=== PATIENT | male | born 1935 | race Caucasian/White ===

== ENCOUNTER 2017-09-26 04:48 | Inpatient (IN) | payer MEDICARE, MEDICAID ==
[~2017-09-26] VITALS: Ht 177.8 cm; Wt 65.8 kg
[~2017-09-26 04:48] MED LIST: CARAFATE1 G PO; CIPRO500 MG PO; DICLOFENAC SODI50 MG PO; FLAGYL500 MG PO; HYDROCODON-ACE1 EAC7 PO; HYDROXYZINE HCL50 MG PO; OMEPRAZOLE20 M1 PO; SODIUM BICARBO650 MG PO; TENORMIN25 MG PO; ZETIA10 MG PO; ZOCOR20 MG PO
[2017-09-26 06:14] LABS: BASOPHILS 0.1 % (0-2); EOSINOPHILS 0.3 % (0-7); HEMOGLOBIN 13.9 g/dL (13.5-17.5); IMMATURE GRANULOCYTES 0.3 % (0-5); LYMPHOCYTES 9.7 % (15-50); MCH 29.6 pg (26.0-34.0); MCHC 33.1 g/dL (31.0-37.0); MCV 89.4 fL (80.0-100.0); MEAN PLATELET VOLUME 10.3 fL (7.4-10.4); MONOCYTES 9.1 % (2-11); NEUTROPHILS 80.5 % (40-80); PLATELET COUNT 217 10x3/uL (130-400); RDW 13.7 % (11.5-14.5); WBC 10.4 10x3/uL (4.8-10.8)
[2017-09-26 06:15] LABS: ALBUMIN 3.3 g/dL (3.4-5.0); ANION GAP 15.8 mmol/L (8-16); BILIRUBIN - TOTAL 0.7 mg/dL (0.2-1.3); CALCIUM 8.4 mg/dL (8.5-10.1); CARBON DIOXIDE 22.8 mmol/L (21.0-32.0); CREATININE - SERUM 1.5 mg/dL (0.6-1.3); POTASSIUM - SERUM 3.6 mmol/L (3.5-5.1); PROTEIN - SERUM 6.9 g/dL (6.4-8.2)
[2017-09-26 06:24] LABS: THYROID STIMULATING HORMONE 1.99 uIU/mL (0.36-3.74); TROPONIN-I 0.023 ng/mL (0.000-0.060)
[2017-09-26] MEDS ORDERED: HYDROCODON-ACE1 EAC6 PO (14:45)
[2017-09-26] MEDS ORDERED: HYDROCODON-ACE1 EAC7 PO (14:49)
[2017-09-26 14:53] VITALS: BP 117/91; BMI 20.8
[2017-09-26 19:00] VITALS: BP 131/47; BP 154/84
[2017-09-26 19:24] LABS: APPEARANCE CLEAR (CLEAR); COLOR YELLOW (YELLOW)
[2017-09-26 19:25] LABS: BILIRUBIN NEGATIVE (NEGATIVE); GLUCOSE NEGATIVE (NEGATIVE); KETONE NEGATIVE (NEGATIVE); NITRITE NEGATIVE (NEGATIVE); PROTEIN NEGATIVE (NEGATIVE); UROBILINOGEN NORMAL (NORMAL)
[2017-09-27 02:33] VITALS: BP 139/76
[2017-09-27 06:02] VITALS: BP 149/78
[2017-09-27 06:05] LABS: BASOPHILS 0.2 % (0-2); EOSINOPHILS 0.8 % (0-7); HEMATOCRIT 37.8 % (42.0-54.0); HEMOGLOBIN 12.4 g/dL (13.5-17.5); LYMPHOCYTES 29.1 % (15-50); MCH 29.2 pg (26.0-34.0); MCHC 32.8 g/dL (31.0-37.0); MCV 88.9 fL (80.0-100.0); MEAN PLATELET VOLUME 10.3 fL (7.4-10.4); MONOCYTES 12.9 % (2-11); PLATELET COUNT 232 10x3/uL (130-400); RBC 4.25 10x6/uL (4.20-6.10)
[2017-09-27 06:17] LABS: CARBON DIOXIDE 24.3 mmol/L (21.0-32.0); CREATININE - SERUM 1.3 mg/dL (0.6-1.3); POTASSIUM - SERUM 3.3 mmol/L (3.5-5.1)
[2017-09-27 08:14] VITALS: BP 145/77
[2017-09-27 10:47] VITALS: Ht 177.8 cm; Wt 65.8 kg
[2017-09-27 11:29] VITALS: BP 131/69
[2017-09-27 15:16] VITALS: BP 128/66
[2017-09-27] MEDS ORDERED: MEDROL DOSE PACK4 MG PO (16:04)
[2017-09-27] MEDS ORDERED: ZPAK PO (16:05)
[2017-09-27] MEDS ORDERED: SYMBICORT 16010.2 GM INH (16:05)
[2017-09-27] MEDS ORDERED: VENTOLIN HFA18 GM INH (16:06)
== END 2017-09-27 18:30 | disposition home or self-care (01) | DRG 192 ==
LOC: D.ER 04:48 → D.EDHOLD 06:27 → D.M2 16:56
PROVIDERS: Emergency Medicine; Family Medicine
DX: J44.1 Chronic obstructive pulmonary disease with (acute) exacerbation (principal); I10 Essential (primary) hypertension

== ENCOUNTER 2017-11-09 16:29 | Inpatient (IN) | payer MEDICARE, MEDICAID ==
[~2017-11-09] VITALS: Ht 177.8 cm; Wt 80.3 kg
--- NOTE | ~2017-11-09 | HP ---
PATIENT: DMITRIY MITCHELL MEDICAL RECORD: [id number] ACCOUNT: [id number] LOCATION:[facility] D.2310 : 33 ADMISSION DATE: 11/10/17 HISTORY AND PHYSICAL EXAMINATION DATE OF ADMISSION: 11/09/2017. CHIEF COMPLAINT: Nausea and vomiting. HISTORY OF PRESENT ILLNESS: The patient is an 81-year-old gentleman, who lives in outlying area who is cared for by Dr. Lorenzo. Dr. Lorenzo is not a staff physician. Therefore, the patient is admitted to my service on an unassigned medicine. The patient is an 81-year-old gentleman who 3 days ago developed nausea and vomiting. He has had a long history of having a right inguinal hernia. He presents to the Emergency Room where he was experiencing nausea and vomiting. He had also had elevated white blood cell count. He had elevated BUN and creatinine. It was felt the patient warranted admission. PAST MEDICAL HISTORY: Significant that he has had cardiac stents placed times 2 in [place], escalation engineer name unknown. He has not had any chest pain since that time. He has had a history of COPD in the past. He has had a cholecystectomy, appendectomy. He has had a partial gastrectomy, hyperlipidemia, hypertension. FAMILY HISTORY: Mother in her 80s of oral cancer. Father in his 80s of reasons unknown. HABITS: The patient states he was smoker as a young man and has not smoked in many years. He denies any ethanol abuse. SOCIAL HISTORY: Born and raised in [place]. He has worked numerous jobs in the past. He currently is . ALLERGIES: No known drug allergies. MEDICATIONS: Include Carafate 1 g q.a.c. and q.h.s., Zetia 10 mg p.o. q.h.s., diclofenac 50 mg b.i.d., Cipro 500 mg b.i.d., sodium bicarbonate 650 mg oral tablet t.i.d., Prilosec 20 mg daily, atenolol 25 mg daily, Flagyl 500 mg b.i.d., simvastatin 20 mg once a day. REVIEW OF SYSTEMS: CONSTITUTIONAL: He denies any headaches, seizure, or syncope. Denies change in visual or auditory acuity. PULMONARY: He denies any worsening cough or congestion. CARDIOVASCULAR: He has had no chest pain, palpitation, PND, orthopnea. GASTROINTESTINAL: The patient has reported 3 days of persistent chronic nausea, vomiting. He has had no diarrhea. Last bowel movement was 3 days ago. MUSCULOSKELETAL: Noncontributory. PHYSICAL EXAMINATION VITAL SIGNS: Today, his weight is 142. His blood pressure is 111/72, pulse 128, respirations 18. HEENT: Head is normocephalic. No lesions. Ears: TMs clear. Eyes: Pupils equal, round, reactive to light. Extraocular movements are intact. Nasal cavity clear. Oropharynx clear. HISTORY AND PHYSICAL [id number] DMITRIY MITCHELL NECK: Supple. There is no adenopathy. HEART: Tachycardic. LUNGS: He has decreased breath sounds in all [place]. ABDOMEN: Soft, bowel sounds are hypoactive. He does have an easily reducible right inguinal hernia. RECTAL: Deferred. LABORATORY DATA: The patient's white count is elevated at 17.4, hemoglobin 16.1, hematocrit is 48.1, and his platelets are 255. Sodium 141, potassium 3.8, chloride is 95, BUN is 26, creatinine is 2.9, glucose 151. INR is 2.23. Urinalysis shows 1+ protein, 0-5 wbc's. IMAGING: Initially chest x-ray shows emphysematous changes, no acute cardiomegaly, cardiopulmonary disease acute changes seen. KUB shows diffuse small bowel dilatation may represent small obstructive or ileus. CT scan shows evidence of small-bowel obstruction with transition to collapsed distal small bowel in the right lower quadrant, right inguinal hernia was noted colonic diverticulosis, trace pericardial effusion, multiple renal cysts. ASSESSMENT: 1. Nausea and vomiting secondary to acute ileus, history of appendectomy, cholecystectomy, and partial gastrectomy. 2. History of arteriosclerotic heart disease with 2 stents, dating back 10 years ago, hyperlipidemia, hypertension, history of COPD, tachycardia. PLAN: The patient is admitted. IV hydration, NG tube placement. Surgical consultation will be obtained. Continue to follow. TRANSINT:[id number] Voice Confirmation ID: [id number] DOCUMENT ID: [id number] BRANDON JOE MD at 1012 CC: [id number] DICTATION DATE: 11/10/17 0747 ZOOLOGY TECHNICAL OFFICER: 11/10/17 1141 ADM IN [place] [id number]
--- NOTE | ~2017-11-09 | EC ---
PATIENT:DMITRIY MITCHELL DATE OF SERVICE: 11/10/17 SEX: M MEDICAL RECORD: [id number] DATE OF : 31 LOCATION:[facility] AGE OF PATIENT: 82 ADMISSION DATE: 11/10/17 REFERRING PHYSICIAN: INTERPRETING PHYSICIAN: MOISÉS GEE MD ECHOCARDIOGRAM REPORT ECHO CHARGES 5 ECHO LIMITED Date: 11/22 CLINICAL DIAGNOSIS: TACHYCARDIA ECHOCARDIOGRAPHIC MEASUREMENTS (adult normal given) AC root (d.<3.7cm) 3.7 cm LV Septum d (<1.2 cm> 1.1 cm Valve Excursion 1.4 cm LV Septum (systole) 1.3 cm Left Atria (s.<4.0cm> 3.4 cm LVPW d(<1.2cm) 1.2 cm RV (d.<2.3cm) 3.2 cm LVPW (sytole) 1.3 cm LV diastole(<5.6CM) 4.3 cm MV E-F(>70mm/sec) cm LV systole 3.1 cm LVOT Diameter 2.0 cm MV exc.(>10mm) cm Est.ejection fraction (50-75%) % DOPPLER: LVIT cm/sec A 88.0 cm/sec E 57.0 cm/sec LA cm/sec RVSP 25.0 mmHg LVOT 120 cm/sec AOP1/2T m/s Asc. Ao 145 cm/sec RVOT 100 cm/sec RA cm/sec PA 97.0 cm/sec AV Gradient Peak 8.4 mmHg AV Mean 3.4 mmHg AV Area 2.8 cm MV Gradient Peak 7.5 mmHg MV Mean 2.0 mmHg MV Area cm COMMENTS: Shotblaster: 2 KIM SALAZAR Batting Machine Operator Insulation: 4 Dr. Gee TAPE# PACS Pericardial Effusion Y DATE OF SERVICE: PROCEDURE: Transthoracic echocardiogram. FINDINGS: Left ventricle shows left ventricular hypertrophy. The patient has hyperdynamic LV systolic function at 65%. The patient had a mild pericardial effusion without any evidence of tamponade. RVSP is normal, RV chamber sizes are normal. There is no significant change from prior echo. TRANSINT:[id number] Voice Confirmation ID: [id number] DOCUMENT ID: [id number] ECHOCARDIOGRAM REPORT [id number] PAULAMOISÉS SILVER MD at 1500 CC: [id number] DICTATION DATE: 11/23/17 1303 STONECUTTER APPRENTICE HAND: 11/23/17 1713 ADM IN [facility] [address] [place] [id number]
--- NOTE | ~2017-11-09 | EC ---
PATIENT:DMITRIY MITCHELL DATE OF SERVICE: 11/10/17 SEX: M MEDICAL RECORD: [id number] DATE OF : 33 LOCATION:[facility] AGE OF PATIENT: 82 ADMISSION DATE: 11/10/17 REFERRING PHYSICIAN: INTERPRETING PHYSICIAN: ALIX CHRIS MD ECHOCARDIOGRAM REPORT ECHO CHARGES 4 ECHO COMPLETE Date: 11/11 CLINICAL DIAGNOSIS: TACHYCARDIA ECHOCARDIOGRAPHIC MEASUREMENTS (adult normal given) AC root (d.<3.7cm) 3.5 cm LV Septum d (<1.2 cm> 1.1 cm Valve Excursion 1.9 cm LV Septum (systole) 1.5 cm Left Atria (s.<4.0cm> 3.4 cm LVPW d(<1.2cm) 1.1 cm RV (d.<2.3cm) 2.0 cm LVPW (sytole) 1.8 cm LV diastole(<5.6CM) 5.8 cm MV E-F(>70mm/sec) cm LV systole 4.1 cm LVOT Diameter 2.0 cm MV exc.(>10mm) cm Est.ejection fraction (50-75%) % DOPPLER: LVIT cm/sec A 88.0 cm/sec E 57.0 cm/sec LA cm/sec RVSP 25.0 mmHg LVOT 120 cm/sec AOP1/2T m/s Asc. Ao 145 cm/sec RVOT 100 cm/sec RA cm/sec PA 97.0 cm/sec AV Gradient Peak 8.4 mmHg AV Mean 3.4 mmHg AV Area 2.8 cm MV Gradient Peak 7.5 mmHg MV Mean 2.0 mmHg MV Area cm COMMENTS: Parking Control Officer: Edilberto KOTHARIOE Academic Support Director: 1 Dr. Chris TAPE# PACS Pericardial Effusion N DATE OF SERVICE: 11/11/2017 Echocardiogram FINDINGS: 1. Left ventricular chamber size is within normal limits. Left ventricular systolic function is normal. Overall ejection fraction estimated at 55%. 2. Left atrium, right atrium, and right ventricular chamber sizes are within normal limits. 3. Valvular structures have normal structure and motion. ECHOCARDIOGRAM REPORT [id number] DMITRIY MITCHELL 4. Doppler interrogation reveals no significant valvular insufficiency or stenosis and pulmonary systolic pressure is normal estimated at 25 mmHg. 5. No evidence of pericardial effusion or left ventricular thrombus. TRANSINT:[id number] Voice Confirmation ID: [id number] DOCUMENT ID: [id number] ALIX CHRIS MD at 1630 CC: [id number] DICTATION DATE: 11/12/17 1150 TITLE CURATIVE SPECIALIST: 11/12/17 1225 ADM IN [place] [id number] [place] [id number]
[~2017-11-09 16:29] MED LIST changes: +HYDROCODON-ACE1 EAC6 PO; +MEDROL DOSE PACK4 MG PO; +SYMBICORT 16010.2 GM INH; +VENTOLIN HFA18 GM INH; +ZPAK PO
[2017-11-09 17:12] LABS: APPEARANCE CLEAR (CLEAR); COLOR YELLOW (YELLOW)
[2017-11-09 17:13] LABS: BILIRUBIN NEGATIVE (NEGATIVE); GLUCOSE NEGATIVE (NEGATIVE); KETONE SMALL mg/dL (NEGATIVE); NITRITE NEGATIVE (NEGATIVE); PROTEIN 1+ mg/dL (NEGATIVE); UROBILINOGEN NORMAL (NORMAL)
[2017-11-09 17:14] LABS: WHITE CELLS - URINE 0-5 /hpf (0-5)
[2017-11-09 17:15] LABS: BACTERIA FEW /hpf (NONE SEEN); EPITHELIAL CELLS 0-5 /hpf (0-5)
[2017-11-09 17:29] LABS: BASOPHILS 0.1 % (0-2); EOSINOPHILS 0 % (0-7); HEMATOCRIT 48.1 % (42.0-54.0); HEMOGLOBIN 16.1 g/dL (13.5-17.5); IMMATURE GRANULOCYTES 0.4 % (0-5); LYMPHOCYTES 9.7 % (15-50); MCH 30.6 pg (26.0-34.0); MCHC 33.5 g/dL (31.0-37.0); MCV 91.4 fL (80.0-100.0); MEAN PLATELET VOLUME 10.7 fL (7.4-10.4); MONOCYTES 9.7 % (2-11); NEUTROPHILS 80.1 % (40-80); PLATELET COUNT 255 10x3/uL (130-400); RBC 5.26 10x6/uL (4.20-6.10); RDW 14.3 % (11.5-14.5); WBC 17.4 10x3/uL (4.8-10.8)
[2017-11-09 17:35] LABS: INR 2.23 (0.85-1.17); PROTIME 24.1 SECONDS (11.6-15.0)
[2017-11-09 17:42] LABS: ALBUMIN 3.6 g/dL (3.4-5.0); ANION GAP 15.8 mmol/L (8-16); BILIRUBIN - TOTAL 0.94 mg/dL (0.2-1.3); CALCIUM 10.8 mg/dL (8.5-10.1); CREATININE - SERUM 2.9 mg/dL (0.6-1.3); POTASSIUM - SERUM 3.8 mmol/L (3.5-5.1); PROTEIN - SERUM 7.6 g/dL (6.4-8.2)
[2017-11-09 17:46] LABS: MAGNESIUM - SERUM 1.9 mg/dL (1.8-2.4)
[2017-11-09 18:07] LABS: TROPONIN-I 0.022 ng/mL (0.000-0.060)
[2017-11-10] VITALS (44 sets, daily range): BP systolic 118–184; BP diastolic 55–117; BMI 20.4; BMI 20.3
[2017-11-10 05:43] LABS: BASOPHILS 0 % (0-2); EOSINOPHILS 0 % (0-7); HEMATOCRIT 45.9 % (42.0-54.0); HEMOGLOBIN 15.2 g/dL (13.5-17.5); IMMATURE GRANULOCYTES 0.3 % (0-5); LYMPHOCYTES 8.9 % (15-50); MCH 30.2 pg (26.0-34.0); MCHC 33.1 g/dL (31.0-37.0); MCV 91.1 fL (80.0-100.0); MEAN PLATELET VOLUME 11.2 fL (7.4-10.4); MONOCYTES 11.7 % (2-11); NEUTROPHILS 79.1 % (40-80); PLATELET COUNT 247 10x3/uL (130-400); RBC 5.04 10x6/uL (4.20-6.10); RDW 14.6 % (11.5-14.5); WBC 12.6 10x3/uL (4.8-10.8)
[2017-11-10 06:19] LABS: ANION GAP 13.9 mmol/L (8-16); CALCIUM 9.5 mg/dL (8.5-10.1); CARBON DIOXIDE 33.9 mmol/L (21.0-32.0); CREATININE - SERUM 2.8 mg/dL (0.6-1.3); POTASSIUM - SERUM 3.8 mmol/L (3.5-5.1)
[2017-11-10 09:51] LABS: APPEARANCE CLEAR (CLEAR); BILIRUBIN NEGATIVE (NEGATIVE); COLOR YELLOW (YELLOW); GLUCOSE NEGATIVE (NEGATIVE); KETONE SMALL mg/dL (NEGATIVE); NITRITE NEGATIVE (NEGATIVE); PROTEIN 1+ mg/dL (NEGATIVE); SPECIFIC GRAVITY 1.005 (1.005-1.020); UROBILINOGEN NORMAL (NORMAL)
[2017-11-10 09:52] LABS: WHITE CELLS - URINE 0-5 /hpf (0-5)
[2017-11-10 09:53] LABS: BACTERIA FEW /hpf (NONE SEEN); EPITHELIAL CELLS 0-5 /hpf (0-5)
[2017-11-11] VITALS (24 sets, daily range): BP systolic 136–181; BP diastolic 69–103
[2017-11-11 04:47] LABS: INR 1.12 (0.85-1.17); PROTIME 13.9 SECONDS (11.6-15.0)
[2017-11-11 04:51] LABS: ALBUMIN 2.7 g/dL (3.4-5.0); ANION GAP 9.2 mmol/L (8-16); BILIRUBIN - TOTAL 0.7 mg/dL (0.2-1.3); CALCIUM 8.8 mg/dL (8.5-10.1); CARBON DIOXIDE 32.4 mmol/L (21.0-32.0); DIGOXIN 0.22 ng/mL (0.90-2.00); POTASSIUM - SERUM 3.6 mmol/L (3.5-5.1); PROTEIN - SERUM 6.1 g/dL (6.4-8.2)
[2017-11-12] VITALS (21 sets, daily range): BP systolic 137–179; BP diastolic 78–95
[2017-11-12 05:10] LABS: BASOPHILS 0.1 % (0-2); EOSINOPHILS 0.1 % (0-7); HEMATOCRIT 44.7 % (42.0-54.0); HEMOGLOBIN 14.4 g/dL (13.5-17.5); IMMATURE GRANULOCYTES 0.3 % (0-5); LYMPHOCYTES 12.8 % (15-50); MCH 29.9 pg (26.0-34.0); MCHC 32.2 g/dL (31.0-37.0); MCV 92.7 fL (80.0-100.0); MEAN PLATELET VOLUME 11.2 fL (7.4-10.4); MONOCYTES 9.6 % (2-11); NEUTROPHILS 77.1 % (40-80); PLATELET COUNT 212 10x3/uL (130-400); RBC 4.82 10x6/uL (4.20-6.10); WBC 11.9 10x3/uL (4.8-10.8)
[2017-11-12 05:36] LABS: ANION GAP 14.6 mmol/L (8-16); CARBON DIOXIDE 28.6 mmol/L (21.0-32.0); CREATININE - SERUM 1.7 mg/dL (0.6-1.3); POTASSIUM - SERUM 3.2 mmol/L (3.5-5.1)
[2017-11-13 03:00] VITALS: BP 154/88
[2017-11-13 04:49] LABS: BASOPHILS 0.1 % (0-2); EOSINOPHILS 0.6 % (0-7); HEMATOCRIT 40.9 % (42.0-54.0); HEMOGLOBIN 12.8 g/dL (13.5-17.5); IMMATURE GRANULOCYTES 0.2 % (0-5); LYMPHOCYTES 14.5 % (15-50); MCHC 31.3 g/dL (31.0-37.0); MCV 92.7 fL (80.0-100.0); MEAN PLATELET VOLUME 11.5 fL (7.4-10.4); NEUTROPHILS 74.6 % (40-80); PLATELET COUNT 188 10x3/uL (130-400); RBC 4.41 10x6/uL (4.20-6.10); RDW 13.8 % (11.5-14.5)
[2017-11-13 04:57] LABS: WBC 8.9 10x3/uL (4.8-10.8)
[2017-11-13 05:01] LABS: CALCIUM 8.4 mg/dL (8.5-10.1); CARBON DIOXIDE 27.4 mmol/L (21.0-32.0); CREATININE - SERUM 1.5 mg/dL (0.6-1.3); POTASSIUM - SERUM 3.4 mmol/L (3.5-5.1)
[2017-11-13 07:00] VITALS: BP 161/90
[2017-11-13 11:00] VITALS: BP 148/94
[2017-11-13 16:04] VITALS: BP 157/89
[2017-11-13 21:26] VITALS: BP 97/57
[2017-11-14 04:41] LABS: BASOPHILS 0.1 % (0-2); EOSINOPHILS 1.2 % (0-7); HEMOGLOBIN 12.8 g/dL (13.5-17.5); IMMATURE GRANULOCYTES 0.5 % (0-5); LYMPHOCYTES 21.7 % (15-50); MCH 29.5 pg (26.0-34.0); MCV 92.2 fL (80.0-100.0); MEAN PLATELET VOLUME 11.2 fL (7.4-10.4); MONOCYTES 9.1 % (2-11); NEUTROPHILS 67.4 % (40-80); PLATELET COUNT 184 10x3/uL (130-400); RBC 4.34 10x6/uL (4.20-6.10); RDW 13.5 % (11.5-14.5); WBC 7.5 10x3/uL (4.8-10.8)
[2017-11-14 04:47] VITALS: BP 184/78
[2017-11-14 04:49] LABS: ANION GAP 12.4 mmol/L (8-16); CALCIUM 8.2 mg/dL (8.5-10.1); CARBON DIOXIDE 25.3 mmol/L (21.0-32.0); CREATININE - SERUM 1.3 mg/dL (0.6-1.3); POTASSIUM - SERUM 3.7 mmol/L (3.5-5.1)
[2017-11-14 08:03] VITALS: BP 158/88
[2017-11-14 12:35] VITALS: BP 181/90
[2017-11-14 15:56] VITALS: BP 130/70
[2017-11-14 21:41] VITALS: BP 129/73
[2017-11-15 02:35] VITALS: BP 124/73
[2017-11-15 05:01] LABS: BASOPHILS 0.1 % (0-2); EOSINOPHILS 1.2 % (0-7); HEMATOCRIT 35.6 % (42.0-54.0); HEMOGLOBIN 11.5 g/dL (13.5-17.5); IMMATURE GRANULOCYTES 0.7 % (0-5); LYMPHOCYTES 18.3 % (15-50); MCH 29.1 pg (26.0-34.0); MCHC 32.3 g/dL (31.0-37.0); MEAN PLATELET VOLUME 10.7 fL (7.4-10.4); MONOCYTES 9.5 % (2-11); NEUTROPHILS 70.2 % (40-80); PLATELET COUNT 163 10x3/uL (130-400); RBC 3.95 10x6/uL (4.20-6.10); RDW 13.4 % (11.5-14.5); WBC 7.3 10x3/uL (4.8-10.8)
[2017-11-15 05:09] LABS: MCV 90.1 fL (80.0-100.0)
[2017-11-15 05:17] LABS: ANION GAP 8.6 mmol/L (8-16); CALCIUM 7.6 mg/dL (8.5-10.1); CARBON DIOXIDE 24.6 mmol/L (21.0-32.0); CREATININE - SERUM 1.2 mg/dL (0.6-1.3); POTASSIUM - SERUM 3.2 mmol/L (3.5-5.1)
[2017-11-15 06:20] VITALS: BP 122/78
[2017-11-15 09:07] VITALS: BP 140/74
[2017-11-15 13:13] VITALS: BP 115/76
[2017-11-15] MEDS ORDERED: CATAPRES-T1 PATCH.WK TRANSDERM (14:22)
[2017-11-15] MEDS ORDERED: CARDIZEM CD240 MG PO (14:23)
[2017-11-15 16:23] VITALS: BP 147/84
[2017-11-15 22:16] VITALS: BP 148/77
[2017-11-16 05:26] VITALS: BP 132/73
[2017-11-16 08:03] VITALS: BP 128/71
[2017-11-16 12:58] VITALS: BP 129/80
[2017-11-16 16:52] VITALS: BP 133/71
[2017-11-16 21:32] VITALS: BP 137/71
[2017-11-17 04:56] VITALS: BP 119/70
[2017-11-17 05:49] LABS: BASOPHILS 0.1 % (0-2); EOSINOPHILS 1.6 % (0-7); HEMATOCRIT 32.6 % (42.0-54.0); HEMOGLOBIN 10.6 g/dL (13.5-17.5); LYMPHOCYTES 18.9 % (15-50); MCH 29.3 pg (26.0-34.0); MCHC 32.5 g/dL (31.0-37.0); MCV 90.1 fL (80.0-100.0); MEAN PLATELET VOLUME 11.1 fL (7.4-10.4); MONOCYTES 12.2 % (2-11); NEUTROPHILS 66.2 % (40-80); PLATELET COUNT 141 10x3/uL (130-400); RBC 3.62 10x6/uL (4.20-6.10); RDW 13.8 % (11.5-14.5); WBC 8.3 10x3/uL (4.8-10.8)
[2017-11-17 06:04] LABS: ALBUMIN 1.7 g/dL (3.4-5.0); ANION GAP 11.6 mmol/L (8-16); BILIRUBIN - TOTAL 0.87 mg/dL (0.2-1.3); CALCIUM 7.4 mg/dL (8.5-10.1); CARBON DIOXIDE 21.4 mmol/L (21.0-32.0); CREATININE - SERUM 1.1 mg/dL (0.6-1.3); MAGNESIUM - SERUM 1.1 mg/dL (1.8-2.4)
[2017-11-17 08:59] VITALS: BP 124/70
[2017-11-17 13:09] VITALS: BP 138/75
[2017-11-17 16:14] VITALS: BP 134/74
[2017-11-17 22:35] VITALS: BP 138/77
[2017-11-18 04:49] LABS: BASOPHILS 0.1 % (0-2); EOSINOPHILS 1.5 % (0-7); HEMATOCRIT 34.7 % (42.0-54.0); HEMOGLOBIN 11.2 g/dL (13.5-17.5); IMMATURE GRANULOCYTES 1.1 % (0-5); LYMPHOCYTES 15.7 % (15-50); MCH 29.2 pg (26.0-34.0); MCHC 32.3 g/dL (31.0-37.0); MCV 90.4 fL (80.0-100.0); MEAN PLATELET VOLUME 11.6 fL (7.4-10.4); MONOCYTES 10.8 % (2-11); NEUTROPHILS 70.8 % (40-80); PLATELET COUNT 177 10x3/uL (130-400); RBC 3.84 10x6/uL (4.20-6.10); WBC 9.4 10x3/uL (4.8-10.8)
[2017-11-18 05:02] LABS: ALBUMIN 1.8 g/dL (3.4-5.0); ANION GAP 12.7 mmol/L (8-16); BILIRUBIN - TOTAL 0.7 mg/dL (0.2-1.3); CALCIUM 7.6 mg/dL (8.5-10.1); CARBON DIOXIDE 21.5 mmol/L (21.0-32.0); CREATININE - SERUM 1.2 mg/dL (0.6-1.3); PHOSPHOROUS 2.3 mg/dL (2.5-4.9); POTASSIUM - SERUM 4.2 mmol/L (3.5-5.1); PROTEIN - SERUM 4.6 g/dL (6.4-8.2)
[2017-11-18 08:28] VITALS: BP 133/80
[2017-11-18 13:25] VITALS: BP 138/69
[2017-11-18 16:13] VITALS: BP 121/73
[2017-11-18 20:00] VITALS: BP 140/78
[2017-11-19] VITALS: BP 147/75
[2017-11-19 03:36] LABS: BASOPHILS 0.1 % (0-2); EOSINOPHILS 0.8 % (0-7); HEMATOCRIT 33.9 % (42.0-54.0); HEMOGLOBIN 11.3 g/dL (13.5-17.5); IMMATURE GRANULOCYTES 0.8 % (0-5); LYMPHOCYTES 13.8 % (15-50); MCH 29.8 pg (26.0-34.0); MCHC 33.3 g/dL (31.0-37.0); MCV 89.4 fL (80.0-100.0); MEAN PLATELET VOLUME 10.3 fL (7.4-10.4); MONOCYTES 9.5 % (2-11); PLATELET COUNT 209 10x3/uL (130-400); RBC 3.79 10x6/uL (4.20-6.10); WBC 9.3 10x3/uL (4.8-10.8)
[2017-11-19 03:52] LABS: ALBUMIN 1.7 g/dL (3.4-5.0); ANION GAP 10.8 mmol/L (8-16); BILIRUBIN - TOTAL 0.83 mg/dL (0.2-1.3); CALCIUM 7.9 mg/dL (8.5-10.1); CARBON DIOXIDE 25.9 mmol/L (21.0-32.0); CREATININE - SERUM 1.1 mg/dL (0.6-1.3); MAGNESIUM - SERUM 1.6 mg/dL (1.8-2.4); PHOSPHOROUS 2.3 mg/dL (2.5-4.9); POTASSIUM - SERUM 4.7 mmol/L (3.5-5.1); PROTEIN - SERUM 4.6 g/dL (6.4-8.2)
[2017-11-19 04:00] VITALS: BP 137/83
[2017-11-19 08:12] VITALS: BP 134/79
[2017-11-19 12:00] VITALS: BP 123/76
[2017-11-19 16:36] VITALS: BP 127/74
[2017-11-19 21:45] VITALS: BP 135/81
[2017-11-20 01:01] VITALS: BP 148/78
[2017-11-20 04:34] LABS: BASOPHILS 0.2 % (0-2); EOSINOPHILS 0.6 % (0-7); HEMATOCRIT 35.7 % (42.0-54.0); HEMOGLOBIN 11.7 g/dL (13.5-17.5); IMMATURE GRANULOCYTES 0.8 % (0-5); LYMPHOCYTES 15.1 % (15-50); MCH 29.2 pg (26.0-34.0); MCHC 32.8 g/dL (31.0-37.0); MEAN PLATELET VOLUME 10.7 fL (7.4-10.4); MONOCYTES 10.1 % (2-11); NEUTROPHILS 73.2 % (40-80); RBC 4.01 10x6/uL (4.20-6.10); RDW 13.8 % (11.5-14.5); WBC 11.2 10x3/uL (4.8-10.8)
[2017-11-20 04:41] LABS: PLATELET COUNT 290 10x3/uL (130-400)
[2017-11-20 04:45] VITALS: BP 154/74
[2017-11-20 04:58] LABS: ANION GAP 12.4 mmol/L (8-16); CALCIUM 8.2 mg/dL (8.5-10.1); CARBON DIOXIDE 23.8 mmol/L (21.0-32.0); MAGNESIUM - SERUM 1.5 mg/dL (1.8-2.4); POTASSIUM - SERUM 4.2 mmol/L (3.5-5.1)
[2017-11-20 05:04] LABS: CREATININE - SERUM 1.4 mg/dL (0.6-1.3); PHOSPHOROUS 3.1 mg/dL (2.5-4.9)
[2017-11-20 08:16] VITALS: BP 154/89
[2017-11-20 13:02] VITALS: BP 147/73
[2017-11-20 13:03] LABS: APPEARANCE CLEAR (CLEAR); COLOR DK YELLOW (YELLOW); SPECIFIC GRAVITY 1.015 (1.005-1.020)
[2017-11-20 13:06] LABS: BACTERIA FEW /hpf (NONE SEEN); BILIRUBIN NEGATIVE (NEGATIVE); EPITHELIAL CELLS 0-5 /hpf (0-5); GLUCOSE NEGATIVE (NEGATIVE); KETONE NEGATIVE (NEGATIVE); NITRITE NEGATIVE (NEGATIVE); PROTEIN NEGATIVE (NEGATIVE); RED CELLS - URINE 0-5 /hpf (0-5); UROBILINOGEN NORMAL (NORMAL); WHITE CELLS - URINE OCC /hpf (0-5)
[2017-11-20 16:50] VITALS: BP 157/79
[2017-11-20 21:07] VITALS: BP 145/78
[2017-11-21 01:17] VITALS: BP 154/74
[2017-11-21 04:21] LABS: BASOPHILS 0.1 % (0-2); EOSINOPHILS 1.5 % (0-7); HEMATOCRIT 36.2 % (42.0-54.0); HEMOGLOBIN 11.9 g/dL (13.5-17.5); IMMATURE GRANULOCYTES 0.6 % (0-5); MCH 29.4 pg (26.0-34.0); MCHC 32.9 g/dL (31.0-37.0); MCV 89.4 fL (80.0-100.0); MEAN PLATELET VOLUME 10.2 fL (7.4-10.4); MONOCYTES 8.8 % (2-11); PLATELET COUNT 305 10x3/uL (130-400); RBC 4.05 10x6/uL (4.20-6.10); WBC 10.8 10x3/uL (4.8-10.8)
[2017-11-21 04:38] LABS: ANION GAP 11.4 mmol/L (8-16); CALCIUM 8.3 mg/dL (8.5-10.1); CARBON DIOXIDE 26.9 mmol/L (21.0-32.0); CREATININE - SERUM 1.2 mg/dL (0.6-1.3); POTASSIUM - SERUM 4.3 mmol/L (3.5-5.1)
[2017-11-21 04:44] VITALS: BP 124/67
[2017-11-21 08:00] VITALS: BP 142/79
[2017-11-21 12:53] VITALS: BP 154/85
[2017-11-21 18:54] VITALS: BP 159/65
[2017-11-21 20:15] VITALS: BP 153/77
[2017-11-22 01:48] VITALS: BP 114/71
[2017-11-22 04:53] VITALS: BP 124/76
[2017-11-22 05:05] LABS: BASOPHILS 0.1 % (0-2); EOSINOPHILS 0.1 % (0-7); HEMATOCRIT 37.6 % (42.0-54.0); HEMOGLOBIN 12.1 g/dL (13.5-17.5); IMMATURE GRANULOCYTES 0.4 % (0-5); MCH 29.4 pg (26.0-34.0); MCHC 32.2 g/dL (31.0-37.0); MCV 91.3 fL (80.0-100.0); MEAN PLATELET VOLUME 10.5 fL (7.4-10.4); MONOCYTES 4.6 % (2-11); NEUTROPHILS 89.8 % (40-80); PLATELET COUNT 365 10x3/uL (130-400); RBC 4.12 10x6/uL (4.20-6.10); RDW 14.1 % (11.5-14.5)
[2017-11-22 05:15] LABS: WBC 18.9 10x3/uL (4.8-10.8)
[2017-11-22 05:38] LABS: ALBUMIN 1.6 g/dL (3.4-5.0); ANION GAP 14.5 mmol/L (8-16); BILIRUBIN - TOTAL 0.55 mg/dL (0.2-1.3); CALCIUM 8.1 mg/dL (8.5-10.1); CARBON DIOXIDE 22.3 mmol/L (21.0-32.0); CREATININE - SERUM 1.4 mg/dL (0.6-1.3); MAGNESIUM - SERUM 1.4 mg/dL (1.8-2.4); POTASSIUM - SERUM 4.8 mmol/L (3.5-5.1); PROTEIN - SERUM 4.8 g/dL (6.4-8.2)
[2017-11-22 05:41] LABS: TROPONIN-I 0.151 ng/mL (0.000-0.060)
[2017-11-22 07:13] LABS: CKMB 5.6 U/L (0.0-3.6)
[2017-11-22 08:32] VITALS: BP 135/75
[2017-11-22 10:22] LABS: CREATINE KINASE 972 UL (21-232)
[2017-11-22 10:41] VITALS: Ht 177.8 cm; Wt 80.3 kg
[2017-11-22 10:59] LABS: CKMB 4.8 U/L (0.0-3.6); TROPONIN-I 0.228 ng/mL (0.000-0.060)
[2017-11-22 16:13] LABS: CKMB 3.6 U/L (0.0-3.6); CREATINE KINASE 965 UL (21-232); TROPONIN-I 0.218 ng/mL (0.000-0.060)
[2017-11-22 16:26] VITALS: BP 127/65
[2017-11-22 22:29] VITALS: BP 128/65
[2017-11-23 04:20] LABS: BASOPHILS 0.1 % (0-2); EOSINOPHILS 0.8 % (0-7); HEMATOCRIT 31.7 % (42.0-54.0); HEMOGLOBIN 10.2 g/dL (13.5-17.5); IMMATURE GRANULOCYTES 0.4 % (0-5); LYMPHOCYTES 8.8 % (15-50); MCHC 32.2 g/dL (31.0-37.0); MCV 90.1 fL (80.0-100.0); MEAN PLATELET VOLUME 9.9 fL (7.4-10.4); MONOCYTES 8.8 % (2-11); NEUTROPHILS 81.1 % (40-80); RBC 3.52 10x6/uL (4.20-6.10); WBC 14.2 10x3/uL (4.8-10.8)
[2017-11-23 04:21] LABS: PLATELET COUNT 279 10x3/uL (130-400)
[2017-11-23 04:34] LABS: ANION GAP 11.2 mmol/L (8-16); CALCIUM 8.5 mg/dL (8.5-10.1); CARBON DIOXIDE 24.4 mmol/L (21.0-32.0); CREATININE - SERUM 1.3 mg/dL (0.6-1.3); MAGNESIUM - SERUM 1.6 mg/dL (1.8-2.4); POTASSIUM - SERUM 4.6 mmol/L (3.5-5.1)
[2017-11-23 04:53] VITALS: BP 120/67
[2017-11-23 08:26] VITALS: BP 134/61
[2017-11-23 12:47] VITALS: BP 113/72
[2017-11-23 16:17] VITALS: BP 118/61
[2017-11-23 20:00] VITALS: BP 119/71
[2017-11-24] VITALS: BP 123/75
[2017-11-24 04:00] VITALS: BP 111/60
[2017-11-24 05:33] LABS: BASOPHILS 0.2 % (0-2); EOSINOPHILS 1.2 % (0-7); HEMATOCRIT 27.5 % (42.0-54.0); HEMOGLOBIN 8.9 g/dL (13.5-17.5); IMMATURE GRANULOCYTES 0.3 % (0-5); LYMPHOCYTES 9.8 % (15-50); MCH 28.8 pg (26.0-34.0); MCHC 32.4 g/dL (31.0-37.0); MEAN PLATELET VOLUME 9.6 fL (7.4-10.4); MONOCYTES 7.2 % (2-11); NEUTROPHILS 81.3 % (40-80); PLATELET COUNT 279 10x3/uL (130-400); RBC 3.09 10x6/uL (4.20-6.10); RDW 13.9 % (11.5-14.5); WBC 12.4 10x3/uL (4.8-10.8)
[2017-11-24 06:03] LABS: ANION GAP 8.9 mmol/L (8-16); CALCIUM 8.2 mg/dL (8.5-10.1); CARBON DIOXIDE 24.8 mmol/L (21.0-32.0); CREATININE - SERUM 1.1 mg/dL (0.6-1.3); MAGNESIUM - SERUM 1.4 mg/dL (1.8-2.4); PHOSPHOROUS 2.3 mg/dL (2.5-4.9); POTASSIUM - SERUM 4.7 mmol/L (3.5-5.1)
[2017-11-24 08:31] VITALS: BP 119/68
[2017-11-24 12:05] VITALS: BP 84/50
[2017-11-24 15:51] VITALS: BP 95/52
[2017-11-24 20:00] VITALS: BP 106/56
[2017-11-25 04:00] VITALS: BP 119/63
[2017-11-25 04:55] LABS: BASOPHILS 0.3 % (0-2); EOSINOPHILS 1.4 % (0-7); HEMATOCRIT 28.4 % (42.0-54.0); HEMOGLOBIN 9.1 g/dL (13.5-17.5); IMMATURE GRANULOCYTES 0.3 % (0-5); LYMPHOCYTES 14.6 % (15-50); MCH 28.7 pg (26.0-34.0); MCV 89.6 fL (80.0-100.0); MEAN PLATELET VOLUME 9.4 fL (7.4-10.4); MONOCYTES 6.8 % (2-11); NEUTROPHILS 76.6 % (40-80); PLATELET COUNT 308 10x3/uL (130-400); RBC 3.17 10x6/uL (4.20-6.10); RDW 13.9 % (11.5-14.5); WBC 9.2 10x3/uL (4.8-10.8)
[2017-11-25 05:39] LABS: ALBUMIN 1.2 g/dL (3.4-5.0); ANION GAP 10.5 mmol/L (8-16); BILIRUBIN - TOTAL 0.42 mg/dL (0.2-1.3); CALCIUM 8.4 mg/dL (8.5-10.1); CREATININE - SERUM 1.2 mg/dL (0.6-1.3); MAGNESIUM - SERUM 1.5 mg/dL (1.8-2.4); PHOSPHOROUS 2.7 mg/dL (2.5-4.9); POTASSIUM - SERUM 4.5 mmol/L (3.5-5.1); PROTEIN - SERUM 4.3 g/dL (6.4-8.2)
[2017-11-25 08:21] VITALS: BP 108/60
[2017-11-25 12:29] VITALS: BP 133/74
[2017-11-25 16:35] VITALS: BP 100/56
[2017-11-25 20:00] VITALS: BP 112/60
[2017-11-26 03:54] LABS: BASOPHILS 0.2 % (0-2); EOSINOPHILS 0.9 % (0-7); HEMATOCRIT 29.3 % (42.0-54.0); HEMOGLOBIN 9.6 g/dL (13.5-17.5); IMMATURE GRANULOCYTES 0.4 % (0-5); LYMPHOCYTES 11.6 % (15-50); MCH 29.3 pg (26.0-34.0); MCHC 32.8 g/dL (31.0-37.0); MCV 89.3 fL (80.0-100.0); MEAN PLATELET VOLUME 9.1 fL (7.4-10.4); MONOCYTES 8.1 % (2-11); NEUTROPHILS 78.8 % (40-80); PLATELET COUNT 342 10x3/uL (130-400); RBC 3.28 10x6/uL (4.20-6.10); RDW 13.9 % (11.5-14.5)
[2017-11-26 04:06] LABS: ANION GAP 9.3 mmol/L (8-16); CALCIUM 8.5 mg/dL (8.5-10.1); CARBON DIOXIDE 30.5 mmol/L (21.0-32.0); CREATININE - SERUM 1.3 mg/dL (0.6-1.3); MAGNESIUM - SERUM 1.7 mg/dL (1.8-2.4); PHOSPHOROUS 2.9 mg/dL (2.5-4.9); POTASSIUM - SERUM 4.8 mmol/L (3.5-5.1)
[2017-11-26 04:20] VITALS: BP 133/75
[2017-11-26 07:42] VITALS: BP 126/69
[2017-11-26 12:24] VITALS: BP 163/88
[2017-11-26 16:42] VITALS: BP 120/58
[2017-11-26 20:00] VITALS: BP 168/87
[2017-11-27 04:00] VITALS: BP 163/73
[2017-11-27 04:59] LABS: BASOPHILS 0.2 % (0-2); EOSINOPHILS 0.6 % (0-7); HEMATOCRIT 29.1 % (42.0-54.0); HEMOGLOBIN 9.6 g/dL (13.5-17.5); IMMATURE GRANULOCYTES 0.4 % (0-5); LYMPHOCYTES 13.7 % (15-50); MCH 29.3 pg (26.0-34.0); MCV 88.7 fL (80.0-100.0); MONOCYTES 8.2 % (2-11); NEUTROPHILS 76.9 % (40-80); PLATELET COUNT 351 10x3/uL (130-400); RBC 3.28 10x6/uL (4.20-6.10); WBC 9.1 10x3/uL (4.8-10.8)
[2017-11-27 05:56] LABS: CALCIUM 8.4 mg/dL (8.5-10.1); CARBON DIOXIDE 24.9 mmol/L (21.0-32.0); CREATININE - SERUM 1.3 mg/dL (0.6-1.3); POTASSIUM - SERUM 4.9 mmol/L (3.5-5.1)
[2017-11-27 08:29] VITALS: BP 166/79
[2017-11-27 12:48] VITALS: BP 143/71
[2017-11-27 15:15] VITALS: BP 118/63
[2017-11-27 20:00] VITALS: BP 145/76
[2017-11-27 23:38] VITALS: BP 140/67
[2017-11-28 04:00] VITALS: BP 141/69
[2017-11-28 05:10] LABS: BASOPHILS 0.2 % (0-2); EOSINOPHILS 1.1 % (0-7); HEMATOCRIT 29.8 % (42.0-54.0); HEMOGLOBIN 9.9 g/dL (13.5-17.5); IMMATURE GRANULOCYTES 0.5 % (0-5); MCH 29.6 pg (26.0-34.0); MCHC 33.2 g/dL (31.0-37.0); MEAN PLATELET VOLUME 8.8 fL (7.4-10.4); MONOCYTES 9.8 % (2-11); NEUTROPHILS 73.4 % (40-80); PLATELET COUNT 336 10x3/uL (130-400); RBC 3.35 10x6/uL (4.20-6.10); RDW 13.8 % (11.5-14.5); WBC 8.5 10x3/uL (4.8-10.8)
[2017-11-28 05:19] LABS: ANION GAP 8.9 mmol/L (8-16); CALCIUM 8.7 mg/dL (8.5-10.1); CARBON DIOXIDE 27.8 mmol/L (21.0-32.0); CREATININE - SERUM 1.2 mg/dL (0.6-1.3); POTASSIUM - SERUM 4.7 mmol/L (3.5-5.1)
[2017-11-28 09:09] VITALS: BP 169/81
[2017-11-28 12:38] VITALS: BP 151/81
[2017-11-28 17:07] VITALS: BP 174/102
[2017-11-28 20:00] VITALS: BP 129/67
[2017-11-29] VITALS: BP 134/76
[2017-11-29 04:33] LABS: BASOPHILS 0.3 % (0-2); EOSINOPHILS 0.9 % (0-7); HEMATOCRIT 31.8 % (42.0-54.0); HEMOGLOBIN 10.4 g/dL (13.5-17.5); IMMATURE GRANULOCYTES 1.1 % (0-5); LYMPHOCYTES 15.5 % (15-50); MCH 29.1 pg (26.0-34.0); MCHC 32.7 g/dL (31.0-37.0); MCV 89.1 fL (80.0-100.0); MEAN PLATELET VOLUME 9.1 fL (7.4-10.4); MONOCYTES 11.1 % (2-11); NEUTROPHILS 71.1 % (40-80); PLATELET COUNT 403 10x3/uL (130-400); RBC 3.57 10x6/uL (4.20-6.10); RDW 13.9 % (11.5-14.5); WBC 7.6 10x3/uL (4.8-10.8)
[2017-11-29 04:44] LABS: ANION GAP 8.6 mmol/L (8-16); CALCIUM 9.1 mg/dL (8.5-10.1); CARBON DIOXIDE 33.3 mmol/L (21.0-32.0); CREATININE - SERUM 1.5 mg/dL (0.6-1.3); POTASSIUM - SERUM 4.9 mmol/L (3.5-5.1)
[2017-11-29 04:45] VITALS: BP 159/85
[2017-11-29 08:33] VITALS: BP 143/76
[2017-11-29 13:18] VITALS: BP 125/73
[2017-11-29 16:11] VITALS: BP 130/72
[2017-11-29 20:00] VITALS: BP 103/52
[2017-11-30] VITALS: BP 144/66
[2017-11-30 04:00] VITALS: BP 117/64
[2017-11-30 04:06] LABS: BASOPHILS 0.1 % (0-2); EOSINOPHILS 0.9 % (0-7); HEMATOCRIT 28.8 % (42.0-54.0); HEMOGLOBIN 9.3 g/dL (13.5-17.5); IMMATURE GRANULOCYTES 0.7 % (0-5); LYMPHOCYTES 18.6 % (15-50); MCH 28.7 pg (26.0-34.0); MCHC 32.3 g/dL (31.0-37.0); MCV 88.9 fL (80.0-100.0); MEAN PLATELET VOLUME 10.3 fL (7.4-10.4); MONOCYTES 12.4 % (2-11); NEUTROPHILS 67.3 % (40-80); RBC 3.24 10x6/uL (4.20-6.10); RDW 13.8 % (11.5-14.5); WBC 6.8 10x3/uL (4.8-10.8)
[2017-11-30 04:07] LABS: PLATELET COUNT 300 10x3/uL (130-400)
[2017-11-30 04:24] LABS: ANION GAP 6.8 mmol/L (8-16); CARBON DIOXIDE 36.3 mmol/L (21.0-32.0); CREATININE - SERUM 1.6 mg/dL (0.6-1.3); POTASSIUM - SERUM 5.1 mmol/L (3.5-5.1)
[2017-11-30 08:10] VITALS: BP 125/65
== END 2017-11-30 10:34 | DRG 336 ==
LOC: D.ER 16:29 → D.MS 18:40 → D.EDHOLD 18:40 → OBSVTIME 18:40 → D.MS 19:00 → D.ICU 11-10 09:20 → D.MS 11-10 11:53 → D.SDCHOLD 11-20 16:04 → D.MS 11-30 10:34
PROVIDERS: Emergency Medicine; Family Medicine; Nurse Practitioner Family; Surgery
PROC: 0D9670Z Drainage of Stomach with Drainage Device, Via Natural or Artificial Opening (ICD-10-PCS; 2017-11-09)
PROC: 0YUA0JZ Supplement Bilateral Inguinal Region with Synthetic Substitute, Open Approach (ICD-10-PCS; principal; 2017-11-21 13:45)
PROC: 0DNE0ZZ Release Large Intestine, Open Approach (ICD-10-PCS; 2017-11-21 13:45)
PROC: 0VBG0ZZ Excision of Left Spermatic Cord, Open Approach (ICD-10-PCS; 2017-11-21 13:45)
DX: K56.50 Intestinal adhesions [bands], unspecified as to partial versus complete obstruction (principal); N17.9 Acute kidney failure, unspecified; N39.0 Urinary tract infection, site not specified; J44.1 Chronic obstructive pulmonary disease with (acute) exacerbation; K40.00 Bilateral inguinal hernia, with obstruction, without gangrene, not specified as recurrent; R11.2 Nausea with vomiting, unspecified; R00.0 Tachycardia, unspecified; J44.9 Chronic obstructive pulmonary disease, unspecified; Z95.5 Presence of coronary angioplasty implant and graft; D72.829 Elevated white blood cell count, unspecified; I10 Essential (primary) hypertension; H54.7 Unspecified visual loss; E86.0 Dehydration; D17.6 Benign lipomatous neoplasm of spermatic cord; I95.9 Hypotension, unspecified

== ENCOUNTER 2017-11-29 17:21 | Inpatient (IN) | payer MEDICARE, MEDICAID ==
[~2017-11-29] VITALS: Ht 177.8 cm; Wt 64.4 kg
--- NOTE | ~2017-11-29 | RHP ---
PATIENT: DMITRIY MITCHELL MEDICAL RECORD: [id number] ACCOUNT: [id number] LOCATION:[facility]10 : 33 ADMISSION DATE: 11/30/17 REHABILITATION HISTORY AND PHYSICAL EXAMINATION POST ADMISSION PHYSICIAN EXAMINATION DATE OF ADMISSION: 11/30/2017. ADMITTING DIAGNOSES: Acute exacerbation of COPD. HISTORY OF PRESENT ILLNESS: The patient admitted to the inpatient rehab secondary to acute exacerbation of COPD. He apparently 3 days prior to his acute hospital admit developed nausea and vomiting and a long history of a right inguinal hernia. He presented to the Emergency Room with elevated white count. He had a BUN and creatinine of 26 and 2.9. He was admitted for further evaluation and workup. His right inguinal hernia was reducible. His heart rate jumped up to 170. He was evaluated by cardiology at that time. He developed a bowel obstruction/ileus and was status post laparoscopic surgery. He does have a history of coronary artery disease, has been having increasing shortness of breath for the last couple of months. He noticed that his heart rate had been irregular. He was started on cardiac medications and placed on telemetry. He has had an NG tube that is now decreased. He has been on procalamine, but now has a diet that has been advanced and he is tolerating this well. He has had some breathing difficulties. He is currently on 3 liters of oxygen at the highest oxygen. He is legally blind and only sees shadows in his right eye. He lives at home with his girlfriend and his son lives next door. He was moderately independent with his mobility and independent with ADLs prior to hospitalization. He is currently set up for min assist to max assist for ADLs and max assist to total assist for mobility. He requires encouragement from people around him to begin independent with his care. He and his family hope that he will return back home and get back to his prior level of functioning. COMORBIDITIES: In this patient include nausea and vomiting, bilateral pleural effusions, postop lysis of abdominal adhesions, hypertension, COPD, sinus tachycardia. PAST MEDICAL HISTORY: Significant for cardiac stent placement, COPD, hyperlipidemia, hypertension, blindness, skin cancer, gastric ulcers, history of tobacco use, urinary frequency, and arthritis. PAST SURGICAL HISTORY: Includes angioplasty, cholecystectomy, appendectomy, partial gastrectomy, and eye surgery. ALLERGIES: No known drug allergies. CURRENT MEDICATIONS: He is on a Catapres TTS patch. He is on Nystatin cream as needed, Calmoseptine, Protonix 40 mg daily. He is on Atarax 50 mg daily. He is on Zetia 10 mg daily, Cardizem-CD 240 mg daily, Carafate 1 g q.a.c. and q.h.s., sodium bicarbonate 650 t.i.d., Zocor 20 mg q.h.s., [place] 5/325 one tab q.4 hours p.r.n., Advair 45/25 two puffs b.i.d., Ventolin 1 inhalation q.6 hours, and MiraLax 17 g in 8 ounces of water daily. HABITS: He does have a history of tobacco use. FAMILY HISTORY: Noncontributory. HISTORY AND PHYSICAL [id number] DMITRIY MITCHELL SOCIAL HISTORY: The patient hopes to return back home to get back to his prior level of functioning. REVIEW OF SYSTEMS: GENERAL: Does complain of weakness and fatigue. HEENT: Denies cold, cough, or congestion. CARDIOVASCULAR: Denies chest pain. PHYSICAL EXAMINATION: VITAL SIGNS: Stable, afebrile. GENERAL: Elderly male in no acute distress, alert upon exam. HEENT: Normocephalic and atraumatic. Mucosa moist. NECK: Supple. LUNGS: Clear at this time. HEART: Regular rate and rhythm. ABDOMEN: Benign. EXTREMITIES: No clubbing, cyanosis or edema. NEUROLOGIC: He does have noted blindness in both eyes. LABORATORY DATA: Admit white count is 8.2, H&H 9.2 and 28.2, and platelet count was noted to be 394. Admit chemistries showed a sodium of 137, potassium 4.3, BUN and creatinine of 35 and 1.6, and blood sugar was noted to be 102. ASSESSMENT: This is an 82-year-old gentleman admitted to the rehab with a working diagnosis of acute exacerbation of COPD. The patient has potential to make improvement. We instituted the following multidisciplinary therapies including to, but not limited to physical, occupational, respiratory, speech, nutritional services, prosthetics and orthotics. Given his complex medical condition and risk for more complications, rehabilitation services cannot be provided at a low level of care such as longterm facility. PLAN: 1. Admit to [facility] for extensive inpatient therapy to include the following disciplines: A. Physical therapy to improve gait, all transfer skills and bed mobility to a modified independent level. B. Occupational therapy to improve activities of daily living to a modified independent level. C. Case management to assist with discharge planning and placement options. D. Nutrition to assist with nutritional needs. E. Rehabilitation nursing to assist in monitoring the patient's underlying medical condition and to assist with any type of bowel or bladder management. 2. The patient's current medication and medical care will be continued. 3. The patient will be placed on standard fall precautions. 4. The patient's estimated length of stay is approximately 7-10 days. 5. Discuss this patient during care team staff meeting this week. TRANSINT:[id number] Voice Confirmation ID: [id number] DOCUMENT ID: [id number] ADDENDUM: I saw this patient for post-admission physical examination on 11/30/2017. Due to an unforeseen emergency I was unable to dictate at that time, did adjust his medications and a post-admission physical examination at a later date on 12/03/2017. Dictation ID [id number] HISTORY AND PHYSICAL [id number] DMITRIY MITCHELL notes whether there has been none or any medical/functional change since admission: - RT is monitoring his O2 sat & adjusting his O2 via oxymizer. ADOLPH attests patient continues to be appropriate for IRF: - Continues to be appropriate. ANGUS EVANS MD at 1405 CC: [id number] DICTATION DATE: 12/03/17 0806 HEAD OF PRECISION TARGETING: 12/03/17 1131 ADM IN [facility] [address] [place] [id number]
[~2017-11-29 17:21] MED LIST changes: +CARDIZEM CD240 MG PO; +CATAPRES-T1 PATCH.WK TRANSDERM
[2017-11-30 11:52] VITALS: BP 119/68; BMI 20.4
[2017-11-30 19:00] VITALS: BP 120/61
[2017-12-01 06:38] LABS: BASOPHILS 0.1 % (0-2); EOSINOPHILS 1.2 % (0-7); HEMATOCRIT 28.2 % (42.0-54.0); HEMOGLOBIN 9.2 g/dL (13.5-17.5); IMMATURE GRANULOCYTES 0.4 % (0-5); LYMPHOCYTES 17.4 % (15-50); MCH 28.9 pg (26.0-34.0); MCHC 32.6 g/dL (31.0-37.0); MCV 88.7 fL (80.0-100.0); MEAN PLATELET VOLUME 9.2 fL (7.4-10.4); MONOCYTES 10.3 % (2-11); NEUTROPHILS 70.6 % (40-80); RBC 3.18 10x6/uL (4.20-6.10); RDW 13.9 % (11.5-14.5); WBC 8.2 10x3/uL (4.8-10.8)
[2017-12-01 06:46] LABS: ANION GAP 6.7 mmol/L (8-16); CALCIUM 8.7 mg/dL (8.5-10.1); CARBON DIOXIDE 35.6 mmol/L (21.0-32.0); CREATININE - SERUM 1.6 mg/dL (0.6-1.3)
[2017-12-01 06:49] LABS: POTASSIUM - SERUM 4.3 mmol/L (3.5-5.1)
[2017-12-01 07:00] VITALS: BP 137/65
[2017-12-01 07:01] LABS: PLATELET COUNT 394 10x3/uL (130-400)
[2017-12-01 10:31] VITALS: Ht 177.8 cm; Wt 64.4 kg
[2017-12-01 20:00] VITALS: BP 118/62
[2017-12-02 07:51] LABS: ANION GAP 5.8 mmol/L (8-16); CARBON DIOXIDE 35.4 mmol/L (21.0-32.0); CREATININE - SERUM 1.7 mg/dL (0.6-1.3); POTASSIUM - SERUM 5.2 mmol/L (3.5-5.1)
[2017-12-02 08:00] VITALS: BP 117/58
[2017-12-02 21:35] VITALS: BP 124/66
[2017-12-03 08:00] VITALS: BP 92/48
[2017-12-03 09:27] LABS: ANION GAP 5.9 mmol/L (8-16); CALCIUM 8.5 mg/dL (8.5-10.1); CARBON DIOXIDE 33.6 mmol/L (21.0-32.0); CREATININE - SERUM 1.6 mg/dL (0.6-1.3); POTASSIUM - SERUM 4.5 mmol/L (3.5-5.1)
[2017-12-03 20:09] VITALS: BP 109/62
[2017-12-04 07:11] LABS: ANION GAP 9.1 mmol/L (8-16); CALCIUM 8.7 mg/dL (8.5-10.1); CARBON DIOXIDE 35.5 mmol/L (21.0-32.0); CREATININE - SERUM 1.7 mg/dL (0.6-1.3); POTASSIUM - SERUM 4.6 mmol/L (3.5-5.1)
[2017-12-04 07:44] VITALS: BP 136/76
[2017-12-04 19:27] VITALS: BP 124/60
[2017-12-05 07:01] LABS: BASOPHILS 0.1 % (0-2); EOSINOPHILS 2.1 % (0-7); HEMATOCRIT 26.2 % (42.0-54.0); HEMOGLOBIN 8.4 g/dL (13.5-17.5); IMMATURE GRANULOCYTES 1.1 % (0-5); LYMPHOCYTES 24.3 % (15-50); MCH 28.6 pg (26.0-34.0); MCHC 32.1 g/dL (31.0-37.0); MCV 89.1 fL (80.0-100.0); MEAN PLATELET VOLUME 9.2 fL (7.4-10.4); NEUTROPHILS 63.4 % (40-80); RBC 2.94 10x6/uL (4.20-6.10); RDW 14.2 % (11.5-14.5); WBC 8.2 10x3/uL (4.8-10.8)
[2017-12-05 07:07] LABS: PLATELET COUNT 475 10x3/uL (130-400)
[2017-12-05 07:38] VITALS: BP 144/79
[2017-12-05 07:59] LABS: ANION GAP 10.3 mmol/L (8-16); CALCIUM 8.8 mg/dL (8.5-10.1); CARBON DIOXIDE 32.1 mmol/L (21.0-32.0); CREATININE - SERUM 1.7 mg/dL (0.6-1.3); POTASSIUM - SERUM 4.4 mmol/L (3.5-5.1)
[2017-12-05 19:00] VITALS: BP 104/49
[2017-12-06 06:58] LABS: ANION GAP 10.6 mmol/L (8-16); CALCIUM 8.6 mg/dL (8.5-10.1); CARBON DIOXIDE 31.8 mmol/L (21.0-32.0); CREATININE - SERUM 1.6 mg/dL (0.6-1.3); POTASSIUM - SERUM 4.4 mmol/L (3.5-5.1)
[2017-12-06 07:52] VITALS: BP 134/77
[2017-12-06 19:00] VITALS: BP 106/58
[2017-12-07 05:52] LABS: BASOPHILS 0.3 % (0-2); EOSINOPHILS 2.1 % (0-7); IMMATURE GRANULOCYTES 1.3 % (0-5); LYMPHOCYTES 21.2 % (15-50); MCH 28.4 pg (26.0-34.0); MCV 88.7 fL (80.0-100.0); MEAN PLATELET VOLUME 9.5 fL (7.4-10.4); MONOCYTES 10.5 % (2-11); NEUTROPHILS 64.6 % (40-80); PLATELET COUNT 510 10x3/uL (130-400); RBC 2.82 10x6/uL (4.20-6.10); RDW 14.4 % (11.5-14.5); WBC 7.8 10x3/uL (4.8-10.8)
[2017-12-07 06:28] LABS: ANION GAP 9.9 mmol/L (8-16); CALCIUM 8.7 mg/dL (8.5-10.1); CARBON DIOXIDE 30.2 mmol/L (21.0-32.0); CREATININE - SERUM 1.5 mg/dL (0.6-1.3); POTASSIUM - SERUM 4.1 mmol/L (3.5-5.1)
[2017-12-07 08:19] VITALS: BP 141/73
[2017-12-07 19:00] VITALS: BP 115/49
[2017-12-07 22:52] VITALS: BP 123/69
[2017-12-07 23:07] VITALS: BP 127/70
[2017-12-08 00:56] VITALS: BP 135/71
[2017-12-08 06:20] LABS: HEMATOCRIT 29.6 % (42.0-54.0)
[2017-12-08 06:22] LABS: HEMOGLOBIN 9.8 g/dL (13.5-17.5)
[2017-12-08 06:25] LABS: ANION GAP 9.2 mmol/L (8-16); CALCIUM 9.2 mg/dL (8.5-10.1); CREATININE - SERUM 1.6 mg/dL (0.6-1.3); POTASSIUM - SERUM 4.2 mmol/L (3.5-5.1)
[2017-12-08 08:57] VITALS: BP 125/70
[2017-12-08 20:49] VITALS: BP 116/67
[2017-12-09 06:44] LABS: ANION GAP 13.8 mmol/L (8-16); CALCIUM 8.7 mg/dL (8.5-10.1); CARBON DIOXIDE 29.2 mmol/L (21.0-32.0); CREATININE - SERUM 1.4 mg/dL (0.6-1.3)
[2017-12-09 19:35] VITALS: BP 147/78
[2017-12-10 06:32] LABS: BASOPHILS 0.3 % (0-2); EOSINOPHILS 2.1 % (0-7); HEMATOCRIT 28.3 % (42.0-54.0); HEMOGLOBIN 9.1 g/dL (13.5-17.5); IMMATURE GRANULOCYTES 1.3 % (0-5); LYMPHOCYTES 25.3 % (15-50); MCH 28.4 pg (26.0-34.0); MCHC 32.2 g/dL (31.0-37.0); MCV 88.4 fL (80.0-100.0); MEAN PLATELET VOLUME 9.2 fL (7.4-10.4); MONOCYTES 10.6 % (2-11); NEUTROPHILS 60.4 % (40-80); PLATELET COUNT 444 10x3/uL (130-400); RDW 14.6 % (11.5-14.5); WBC 6.7 10x3/uL (4.8-10.8)
[2017-12-10 06:59] LABS: ANION GAP 9.3 mmol/L (8-16); CALCIUM 8.7 mg/dL (8.5-10.1); CARBON DIOXIDE 31.6 mmol/L (21.0-32.0); CREATININE - SERUM 1.3 mg/dL (0.6-1.3); POTASSIUM - SERUM 3.9 mmol/L (3.5-5.1)
[2017-12-10 08:00] VITALS: BP 168/76
[2017-12-10 19:00] VITALS: BP 140/73
[2017-12-11 06:16] LABS: BASOPHILS 0.1 % (0-2); EOSINOPHILS 2.1 % (0-7); HEMATOCRIT 27.2 % (42.0-54.0); HEMOGLOBIN 8.5 g/dL (13.5-17.5); IMMATURE GRANULOCYTES 1.2 % (0-5); LYMPHOCYTES 24.7 % (15-50); MCH 28.1 pg (26.0-34.0); MCHC 31.3 g/dL (31.0-37.0); MCV 89.8 fL (80.0-100.0); MONOCYTES 9.1 % (2-11); NEUTROPHILS 62.8 % (40-80); PLATELET COUNT 392 10x3/uL (130-400); RBC 3.03 10x6/uL (4.20-6.10); RDW 14.8 % (11.5-14.5); WBC 6.7 10x3/uL (4.8-10.8)
[2017-12-11 06:40] LABS: ANION GAP 10.8 mmol/L (8-16); CALCIUM 8.3 mg/dL (8.5-10.1); CARBON DIOXIDE 30.6 mmol/L (21.0-32.0); CREATININE - SERUM 1.4 mg/dL (0.6-1.3); POTASSIUM - SERUM 3.4 mmol/L (3.5-5.1)
[2017-12-11 08:33] VITALS: BP 141/74
[2017-12-11 19:00] VITALS: BP 116/58
[2017-12-12 07:37] VITALS: BP 140/81
[2017-12-12 19:00] VITALS: BP 92/52
[2017-12-13 05:31] LABS: BASOPHILS 0.1 % (0-2); EOSINOPHILS 1.5 % (0-7); HEMATOCRIT 26.7 % (42.0-54.0); HEMOGLOBIN 8.6 g/dL (13.5-17.5); IMMATURE GRANULOCYTES 0.7 % (0-5); LYMPHOCYTES 20.4 % (15-50); MCH 28.7 pg (26.0-34.0); MCHC 32.2 g/dL (31.0-37.0); MEAN PLATELET VOLUME 9.2 fL (7.4-10.4); MONOCYTES 9.4 % (2-11); NEUTROPHILS 67.9 % (40-80); PLATELET COUNT 333 10x3/uL (130-400); RDW 15.1 % (11.5-14.5)
[2017-12-13 05:41] LABS: ANION GAP 9.5 mmol/L (8-16); CALCIUM 8.6 mg/dL (8.5-10.1); CARBON DIOXIDE 30.4 mmol/L (21.0-32.0); CREATININE - SERUM 1.5 mg/dL (0.6-1.3); POTASSIUM - SERUM 3.9 mmol/L (3.5-5.1)
[2017-12-13 08:05] VITALS: BP 123/69
[2017-12-13 19:16] VITALS: BP 92/52
[2017-12-14 08:48] VITALS: BP 129/68
[2017-12-14 19:00] VITALS: BP 96/54
[2017-12-15 08:19] VITALS: BP 152/78
[2017-12-15 20:32] VITALS: BP 137/67
[2017-12-16 07:45] VITALS: BP 141/74
[2017-12-16 20:20] VITALS: BP 115/57
[2017-12-17 05:42] LABS: BASOPHILS 0.3 % (0-2); EOSINOPHILS 1.5 % (0-7); HEMOGLOBIN 9.2 g/dL (13.5-17.5); IMMATURE GRANULOCYTES 0.5 % (0-5); LYMPHOCYTES 25.7 % (15-50); MCHC 32.9 g/dL (31.0-37.0); MCV 88.3 fL (80.0-100.0); MEAN PLATELET VOLUME 9.6 fL (7.4-10.4); MONOCYTES 10.7 % (2-11); NEUTROPHILS 61.3 % (40-80); PLATELET COUNT 302 10x3/uL (130-400); RBC 3.17 10x6/uL (4.20-6.10); RDW 15.1 % (11.5-14.5); WBC 6.6 10x3/uL (4.8-10.8)
[2017-12-17 05:52] LABS: ANION GAP 9.4 mmol/L (8-16); CALCIUM 8.4 mg/dL (8.5-10.1); CARBON DIOXIDE 31.4 mmol/L (21.0-32.0); CREATININE - SERUM 1.4 mg/dL (0.6-1.3); POTASSIUM - SERUM 3.8 mmol/L (3.5-5.1)
[2017-12-17 08:34] VITALS: BP 148/74
[2017-12-17 19:00] VITALS: BP 105/55
[2017-12-18 08:00] VITALS: BP 139/80
[2017-12-18 19:00] VITALS: BP 101/54
[2017-12-19 08:00] VITALS: BP 129/73
[2017-12-19 19:00] VITALS: BP 100/53
[2017-12-20 08:00] VITALS: BP 140/76
[2017-12-20 19:00] VITALS: BP 103/50
[2017-12-21 06:22] LABS: BASOPHILS 0.4 % (0-2); EOSINOPHILS 1.8 % (0-7); HEMATOCRIT 27.9 % (42.0-54.0); IMMATURE GRANULOCYTES 0.4 % (0-5); LYMPHOCYTES 26.5 % (15-50); MCH 28.3 pg (26.0-34.0); MCHC 32.3 g/dL (31.0-37.0); MCV 87.7 fL (80.0-100.0); MEAN PLATELET VOLUME 9.7 fL (7.4-10.4); MONOCYTES 12.8 % (2-11); NEUTROPHILS 58.1 % (40-80); PLATELET COUNT 256 10x3/uL (130-400); RBC 3.18 10x6/uL (4.20-6.10); RDW 15.4 % (11.5-14.5); WBC 5.7 10x3/uL (4.8-10.8)
[2017-12-21 06:34] LABS: ANION GAP 11.4 mmol/L (8-16); CALCIUM 8.4 mg/dL (8.5-10.1); CARBON DIOXIDE 28.9 mmol/L (21.0-32.0); CREATININE - SERUM 1.4 mg/dL (0.6-1.3); POTASSIUM - SERUM 3.3 mmol/L (3.5-5.1)
[2017-12-21 08:27] VITALS: BP 130/61
== END 2017-12-21 13:23 | disposition home health service (06) | DRG 191 ==
LOC: UNDOADMIN 17:21 → D.REHAB 17:21
PROVIDERS: Emergency Medicine; Family Medicine
DX: J44.1 Chronic obstructive pulmonary disease with (acute) exacerbation (principal); J90 Pleural effusion, not elsewhere classified; K56.7 Ileus, unspecified; I10 Essential (primary) hypertension; R00.0 Tachycardia, unspecified; R11.2 Nausea with vomiting, unspecified; H54.8 Legal blindness, as defined in USA; I25.10 Atherosclerotic heart disease of native coronary artery without angina pectoris; K80.80 Other cholelithiasis without obstruction

== ENCOUNTER 2018-08-12 12:40 | Emergency (ER) | payer MEDICARE, MEDICAID ==
[~2018-08-12] VITALS: Ht 177.8 cm; Wt 60.8 kg
[2018-08-12 12:42] VITALS: Ht 177.8 cm; Wt 60.8 kg
[2018-08-12 12:59] LABS: BASOPHILS 0.2 % (0-2); EOSINOPHILS 1.1 % (0-7); HEMATOCRIT 43.7 % (42.0-54.0); HEMOGLOBIN 14.3 g/dL (13.5-17.5); IMMATURE GRANULOCYTES 0.2 % (0-5); LYMPHOCYTES 25.1 % (15-50); MCH 28.9 pg (26.0-34.0); MCHC 32.7 g/dL (31.0-37.0); MCV 88.3 fL (80.0-100.0); MEAN PLATELET VOLUME 9.7 fL (7.4-10.4); MONOCYTES 10.6 % (2-11); NEUTROPHILS 62.8 % (40-80); PLATELET COUNT 221 10x3/uL (130-400); RBC 4.95 10x6/uL (4.20-6.10); RDW 13.6 % (11.5-14.5)
[2018-08-12 13:31] LABS: ALBUMIN 3.7 g/dL (3.4-5.0); ALKALINE PHOSPHATASE 107 U/L (46-116); ALT (SGPT) 14 U/L (10-68); BILIRUBIN - TOTAL 0.27 mg/dL (0.2-1.3); CALC OSMOLALITY 285 mosm/kg (275-300); CALCIUM 9.1 mg/dL (8.5-10.1); CARBON DIOXIDE 26.8 mmol/L (21.0-32.0); CHLORIDE - SERUM 103 mmol/L (98-107); GLUCOSE 106 mg/dL (74-106); POTASSIUM - SERUM 4.5 mmol/L (3.5-5.1); PROTEIN - SERUM 7.7 g/dL (6.4-8.2); SODIUM 140 mmol/L (136-145); UREA NITROGEN 32 mg/dL (7-18); eGFR NON AFRICAN AMERICAN 34 mL/min (90-120)
[2018-08-12 13:40] LABS: CKMB 0.8 U/L (0.0-3.6); CREATINE KINASE 79 UL (21-232); PRO BNP 79 pg/mL (0-450); TROPONIN-I < 0.017 ng/mL (0.000-0.060)
[2018-08-12 16:15] VITALS: BP 116/72
== END 2018-08-12 16:15 | disposition home or self-care (01) ==
LOC: D.ER 12:40
PROVIDERS: Family Medicine
DX: R07.89 Other chest pain (principal); I25.10 Atherosclerotic heart disease of native coronary artery without angina pectoris